=== PATIENT | female | born 1965 | race Hispanic/Latino ===

== ENCOUNTER 2019-03-06 11:00 | Outpatient (CLI) | payer OTHER ==
--- NOTE | 2019-03-07 10:36 | Mammography Report ---
DIGITAL SCREENING MAMMOGRAM WITH CAD, 03/06/2019 INDICATION: Routine screening mammography. TECHNIQUE: Digital bilateral 2D mammography was obtained in the craniocaudal and mediolateral obliq ue projections. This examination was interpreted with the benefit of Computer-Aided Detection analysi s. COMPARISON: 03/01/2018, 02/12/2017 and 02-25 FINDINGS: Breast Density: The breasts are heterogeneously dense, which may obscure small masses. Right asymmetries on both views require additional imaging. Previously identified low-density bilater al circumscribed inner masses are stable. The right lower inner mass has a biopsy clip. There is no e vidence of new mass, suspicious calcifications or architectural distortion in the left breast. IMPRESSION: Right asymmetries requiring additional imaging. Recommend recall for right lateral and sp ot compression MLO and CC views and right breast ultrasound if needed. Follow up recommendation: Routine yearly Category 0: Incomplete. Needs additional imaging evaluation and/or prior mammograms for comparison. A "normal" or negative report should not discourage follow up or biopsy of a clinically significant f inding. A written summary of these findings will be mailed to the patient. The patient will be entered into a mammography reporting system which will generate a reminder letter for the patient's next appointmen t at the appropriate interval. The [employer] recommends yearly mammograms starting at age 40 and continuing as l mally as a woman is in good health. Breast MRI is recommended for women with an approximate 20-25% or greater lifetime risk of breast cancer, including women with a strong family history of breast or ova kiera cancer or who have been treated for Hodgkin's disease. Signer Name: Elroy Zhou MD Signed: 03/07/2019 10:32 AM Workstation Name: [id number]
== END 2019-03-06 11:01 | disposition home or self-care (01) ==
LOC: SPVWC 11:00
PROVIDERS: ATTEND Obstetrics & Gynecology
DX: Z12.31 Encounter for screening mammogram for malignant neoplasm of breast (principal)
CPT/HCPCS: 77067